=== PATIENT | female | born 1990 | race Caucasian/White ===

== ENCOUNTER 2019-05-23 10:43 | Emergency (ER) | payer BC ==
--- NOTE | 2019-05-23 11:32 | ED ---
Neurological HPI - HPI Summary HPI Summary: This patient is a 28 year old female presenting to [facility] with a chief complaint of seizures/convulsions. The patient had this episode an hour ago and was witnessed by a friend. The patient states she has a history of this and usually comprises of syncope and convulsions, with the last episode happening in January. She states the patient hit her head on a stool. She then went into full rigor shaking with her arms out on the floor for approximately 2 minutes. Patient was able to stand up and ambulate following the episode. This was the 5th time she had an episode like this. The patient also have a cardiac history of PVCs, PACs , and prolonged QT waves. The patient states they happen spontaneously and she never knows when they are about to happen. The patient states she was taking Keppra and has had EEGs done at neurologists and [place] an [place] and they have not found evidence of seizures. Patient was then taken off Keppra. Patient reports bruising on her thighs. The patient has a loop recorder at her left medial breast. Vital signs in room: HR 78 BPM HR 134/90 Acebutolol CAP* [Sectral CAP*] 200 mg PO BID 05/23/19 [History Confirmed ] Dextroamphetamine/Amphetamine [Adderall 30 mg Tablet] 30 mg PO BID 05/23/19 [ History Confirmed 05/23/19] Sertraline HCl [Zoloft] 200 mg PO DAILY 05/23/19 [History Confirmed 05/23/19] - History of Current Complaint Stated Complaint: SEIZURE PER FRIEND Time Seen by Provider: 05/23/19 10:50 Hx Obtained From: Patient, Other: - Friend Katerine Onset/Duration: Sudden Onset, Started hours ago Seizure Severity: Self Limited Pain Intensity: 2 Pain Scale Used: 0-10 Numeric - Allergy/Home Medications Allergies/Adverse Reactions: Allergies Allergy/AdvReac Type Severity Reaction Status Date / Time No Known Allergies Allergy Verified 05/23/19 10:53 Home Medications: Home Medications Acebutolol CAP* [Sectral CAP*] 200 mg PO BID 05/23/19 [History Confirmed ] Dextroamphetamine/Amphetamine [Adderall 30 mg Tablet] 30 mg PO BID 05/23/19 [ History Confirmed 05/23/19] Sertraline HCl [Zoloft] 200 mg PO DAILY 05/23/19 [History Confirmed 05/23/19] PMH/Surg Hx/FS Hx/Imm Hx Cardiovascular History: Reports: Other Cardiovascular Problems/Disorders - PVCs , PACs, prolonged QT waves. Neurological History: Reports: Hx Seizures Infectious Disease History: No Infectious Disease History: Reports: Traveled Outside the [place] in Last 30 Days - [place] - Family History Known Family History: Positive: Cardiac Disease Negative: Seizure Disorder - Social History Alcohol Use: Daily Substance Use Type: Reports: Marijuana Smoking Status (MU): Never Smoked Tobacco Review of Systems Positive: Bruising Positive: Syncope - Seizures/convulsions All Other Systems Reviewed And Are Negative: Yes Physical Exam - Summary Physical Exam Summary: Appearance: Ill-appearing, moderate pain distress, well-nourished Skin: Warm, color reflects adequate perfusion, dry. 13 cm purple echymosis and abrasion on her upper left medial thigh. 7 cm purple echymosis and abrasion on her right medial thigh. 5 cm hematoma on the right frontal temporal area. 7 cm purple echymosis on her left mid calf. Head: Normal Head/Face inspection, atraumatic Eyes: Conjunctiva clear ENT: Normal inspection. Tongue with white plaqueing but no definite plaque. Neck: Supple, no nodes, no JVD Respiratory: Lungs clear, normal breath sounds, no respiratory distress Cardio: RRR, No murmur, pulses normal, brisk capillary refill Abdomen: Soft, nontender Bowel sounds: Present Musculoskeletal: Strength Intact/ROM intact, no calf tenderness, no edema. Psychological: Normal Neuro: Alert, muscle tone normal, no focal deficit Triage Information Reviewed: Yes Vital Signs On Initial Exam: Initial Vitals Pulse Resp BP Pulse Ox 88 19 154/90 96 05/23/19 10:46 05/23/19 10:46 05/23/19 10:46 05/23/19 10:46 Vital Signs Reviewed: Yes Diagnostics - Vital Signs Vital Signs Temp Pulse Resp BP Pulse Ox 05/23/19 11:01 80 12 96 05/23/19 10:51 84 15 96 05/23/19 10:47 98 F 88 19 154/90 96 05/23/19 10:46 88 19 154/90 96 - Laboratory Result Diagrams: 05/23/19 12:00 05/23/19 12:00 Lab Statement: Any lab studies that have been ordered have been reviewed, and results considered in the medical decision making process. - CT Brain CT Interpretation Completed By: Radiologist Summary of CT Findings: No evidence of intracranial mass or hemorrhage is noted. ED Provider has reviewed this report. - EKG 1150 Cardiac Rate: NL - 68 BPM EKG Rhythm: Sinus Rhythm ST Segment: Non-Specific Ectopy: PVCs EKG Comparison: Other - No prior to compare Course/Dx - Course Course Of Treatment: This patient is a 28 year old female presenting to [facility] with a chief complaint of seizures/convulsions. Physical exam revealed echymosis around the thighs and a 5 cm hematoma on the right frontal temporal area. Discussed care with Dr. Pearson, Neurology at 13:15 (Not a formal consult ) and he recommended based on the presenation by Dr. Norman to restart keppra. He also stated the patient should not drive. Patient will be prescribed [address] was unremarkable. EKG at 1150 revealed PVCs, consistent with prior Hx. Labs revealed WBC 12.1 H, Absolute Neuts 10.1 H, Absolute Monos 1.0 H , Carbon Dioxide 21 L, and Glucose 114 H. A plan for discharge was discussed with the patient and she was agreeable with this plan. - Diagnoses Provider Diagnoses: Seizure - Physician Notifications Discussed Care Of Patient With: Drake Pearson - Neurology Time Discussed With Above Provider: 13:20 Discharge - Sign-Out/Discharge Documenting (check all that apply): Patient Departure - Discharge Patient Received Moderate/Deep Sedation with Procedure: No - Discharge Plan Condition: Stable Disposition: HOME Prescriptions: levETIRAcetam TAB* [Keppra TAB*] 500 mg PO BID #30 tab Patient Education Materials: Epilepsy (ED) Print Language: CHINESE Forms: *Work Release Referrals: [facility] [Outside] - If Needed Additional Instructions: We have spoken with Dr. Pearson, our neurologist monotype setter, and based on the presentation of your history that I gave to him, he recommends restarting Keppra until you can be seen by your neurologist at home. We have given you a one gram load, and will start 500mg twice a day. We have given you a copy of your EKG which showed one PVC, and had a normal QTc (450). The CT brain was also normal and we have given you a copy of the CT brain and your EKG. Your labs did not have any significant abnormalities. You may be seen in our [facility] clinic if you need a doctor before you return home. You may also return to the ER if you have any new or worsening symptoms. Dr. Pearson states that you may not drive until you are cleared by your neurologist. - Attestation Statements Document Initiated by Freda: Yes Documenting Scribe: Brian Adhikari Provider For Whom Freda is Documenting (Include Credential): Tamia Norman MD Scribe Attestation: Brian Blackman, scribed for Tamia Norman MD on 05/23/19 at 1414. Status of Scribe Document: Ready
[2019-05-23] MEDS ORDERED: NS 0.9% 1000 ML** 2,000 ML IV ONE (11:43)
[2019-05-23 12:07] LABS: ABS Neutrophils 10.1 10^3/ul (1.5-7.7); Eosinophil % 0.3 %; Hematocrit 42 % (35-47); Hemoglobin 14.2 g/dL (12.0-16.0); Mean Corpuscular HGB Conc 34 g/dL (31-36); Mean Corpuscular Hemoglobin 30 pg (27-31); Mean Corpuscular Volume 89 fL (80-97); Mean Platelet Volume 7.6 fL (7.4-10.4); Nucleated Red Blood Cells % 0.1; Platelet Count 260 10^3/uL (150-450); Red Blood Count 4.72 10^6 /uL (3.70-4.87); Red Cell Distribution Width 13 % (10-15); White Blood Count 12.1 10^3/uL (3.5-10.8)
[2019-05-23 12:21] LABS: Activated Partial Thrombo Time 28.5 seconds (26.0-38.0); INR 0.94 (0.82-1.09)
[2019-05-23 12:24] LABS: ALT 15 U/L (7-52); AST 17 U/L (13-39); Albumin 4.6 g/dL (3.2-5.2); Albumin/Globulin Ratio 1.6 (1-3); Alkaline Phosphatase 65 U/L (34-104); Anion Gap 10 mmol/L (2-11); BUN/Creatinine Ratio 13.6 (8-20); Blood Urea Nitrogen 8 mg/dL (6-24); CO2 Carbon Dioxide 21 mmol/L (22-32); Calcium 9.3 mg/dL (8.6-10.3); Chloride 106 mmol/L (101-111); Creatine Kinase 63 U/L (10-223); EGFR African American 144.8 (>60); EGFR Non-African American 119.7 (>60); Globulin 2.9 g/dL (2-4); Glucose 114 mg/dL (70-100); Magnesium 2.2 mg/dL (1.9-2.7); Potassium 3.8 mmol/L (3.5-5.0); Sodium 137 mmol/L (135-145); Total Protein 7.5 g/dL (6.4-8.9)
[2019-05-23 12:54] LABS: Alcohol < 10 mg/dL (<10)
[2019-05-23] MEDS ORDERED: levETIRAcetam 1000MG IVPREMIX* 1,000 MG/100 ML BAG IVPB ONE (13:20)
[2019-05-23 13:33] LABS: TSH (Thyroid Stimulating Horm) 2.34 mcIU/mL (0.34-5.60)
[2019-05-23 13:55] LABS: Urine Appearance Clear; Urine Bacteria Absent (Absent); Urine Bilirubin Negative (Negative); Urine Blood 3+ (Negative); Urine Color Straw; Urine Glucose Negative (Negative); Urine Ketones Negative (Negative); Urine Nitrite Negative (Negative); Urine Protein Negative (Negative); Urine Red Blood Cell Trace(0-2/hpf) (Absent); Urine Specific Gravity 1.011 (1.010-1.030); Urine Squamous Epithelial Cell Present (Absent); Urine Urobilinogen Negative (Negative); Urine White Blood Cell Trace(0-5/hpf) (Absent)
[2019-05-23 14:11] LABS: Urine Benzodiazepine Screen None Detected (None Detect); Urine Opiates Screen None Detected (None Detect)
[2019-05-23 14:44] VITALS: BP 146/93
== END 2019-05-23 14:44 | disposition home or self-care (01) ==
LOC: ED 10:43
DX: R56.9 Unspecified convulsions (principal); S70.12XA Contusion of left thigh, initial encounter; S70.11XA Contusion of right thigh, initial encounter; S00.83XA Contusion of other part of head, initial encounter; S80.12XA Contusion of left lower leg, initial encounter; S70.312A Abrasion, left thigh, initial encounter; S70.311A Abrasion, right thigh, initial encounter; W18.09XA Striking against other object with subsequent fall, initial encounter; Y92.9 Unspecified place or not applicable
CPT/HCPCS: 36415; 70450; 80053; 80307; 80320; 81003; 81015; 82550; 83605; 83735; 84443; 84484; 85025; 85610; 85730; 87077; 87086; 87186; 93005; 96361; 96365; 99283; G0480; J1953